=== PATIENT | male | born 1960 | race Caucasian/White ===

== ENCOUNTER 2016-12-20 00:15 | Observation (INO) | payer OTHER ==
[2016-12-20] MEDS ORDERED: cefTRIAXone 1 GM in Premix Bag 1 BAG IV ONE (00:21)
[2016-12-20] MEDS ORDERED: Diphtheria,Pertussis(Acell),Tetanus Vaccine 0.5 ML Syringe IM ONE (00:22)
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
[2016-12-20] MEDS: Sodium Chloride 0.9% 1,000 ML IV ONE ×2 (00:57→02:02)
[2016-12-20] MEDS ORDERED: Ketorolac 30 MG/ML SDV IVPUSH ONE (01:12)
[2016-12-20 01:34] LABS: CHLORIDE,CL 107 mmol/L (98-110); SODIUM,NA 139 mmol/L (136-146)
[2016-12-20] MEDS ORDERED: Bacitracin Oint 1 GM U/D Packet TOP ONE ×2 (01:55→03:57)
[2016-12-20] MEDS ORDERED: Bacitracin Oint 1 GM U/D Packet ONE (01:59)
[2016-12-20] MEDS ORDERED: Sodium Chloride 0.9% 1,000 ML IV SCH (02:00)
[2016-12-20] MEDS ORDERED: Iopamidol 755 MG/ML 500 ML Multipack Bottle IVPUSH STA (02:57)
[2016-12-20] MEDS ORDERED: diphenhydrAMINE 50 MG/ML SDV IVPUSH PRN (03:51)
[2016-12-20] MEDS ORDERED: Ondansetron 4 MG/2 ML SDV IVPUSH PRN (03:51)
[2016-12-20] MEDS ORDERED: HYDROmorphone 2 MG/ML Syringe IVPUSH PRN (03:51)
[2016-12-20] MEDS ORDERED: Albuterol/Ipratropium 3.0-0.5 MG/3 ML Neb Soln NEB PRN (03:58)
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
[2016-12-20] MEDS: Nicotine 14 MG/24 Hr Patch TRDERM SCH ×2 (05:01→08:45)
[2016-12-20] MEDS: Acetaminophen/HYDROcodone 325-5 MG Tab PO PRN ×3 (09:26→19:46)
[2016-12-20 09:29] LABS: CHLORIDE,CL 110 mmol/L (98-110); SODIUM,NA 140 mmol/L (136-146)
[2016-12-20] MEDS ORDERED: Gadobenate Dimeglumine 529 MG/ML 20 ML SDV IVPUSH STA (13:31)
[2016-12-20] MEDS ORDERED: Sodium Chloride 0.9% 500 ML IV SCH (13:45)
--- NOTE | 2016-12-20 13:47 | PCM.PN ---
- General Info Date of Service: 12/20/16 Admission Dx/Problem (Free Text): Cervical spine fracture at C2, C3 and C7. Right posterior 3rd rib fracture. Subjective Update: Patient with pain and bruising in left distal phalnx. Bruising and pain along ulnar side of dorsal and ventral aspect of right hand/wrist. Pain along right mid back with bruising. No new neurological deficits overnight. Denies headache , new chest pain, shortness of breath, abdominal pain. Pain along neck and upper back. - Review of Systems General: Reports: No Symptoms HEENT: Reports: no symptoms Pulmonary: Reports: no symptoms Cardiovascular: Reports: No Symptoms Gastrointestinal: Reports: No symptoms Genitourinary: Reports: no symptoms Musculoskeletal: Reports: hand pain, back pain, joint swelling Skin: Reports: other (abrasions to left forearm and mid back ) Neurological: Reports: No Symptoms Psychiatric: Reports: no symptoms - Patient Data Vitals - most recent: Last Vital Signs Temp 36.3 C 12/20/16 12:00 Pulse 66 12/20/16 12:00 Resp 20 12/20/16 12:00 BP 126/74 12/20/16 12:00 Pulse Ox 91 L 12/20/16 12:00 Weight - most recent: 67.404 kg I&O - last 24 hours: Intake & Output 12/19/16 12/20/16 12/20/16 22:59 06:59 14:59 Intake Total 100 Output Total 250 Balance -250 100 Lab Results last 24 hrs: Laboratory Results - last 24 hr 12/20/16 12/20/16 Range/Units 08:54 08:54 WBC 10.34 (4.0-11.0) K/uL RBC 4.39 L (4.50-5.90) M/uL Hgb 14.3 (13.0-17.0) g/dL Hct 41.1 (38.0-50.0) % MCV 93.6 (80.0-98.0) fL MCH 32.6 H (27.0-32.0) pg MCHC 34.8 (31.0-37.0) g/dL RDW Std Deviation 44.4 (28.0-62.0) fl RDW Coeff of Vidya 13 (11.0-15.0) % Plt Count 158 (150-400) K/uL MPV 10.30 (7.40-12.00) fL Nucleated RBC % 0.0 /100WBC Nucleated RBCs # 0 K/uL Sodium 140 (136-146) mmol/L Potassium 4.0 (3.5-5.1) mmol/L Chloride 110 (98-110) mmol/L Carbon Dioxide 24 (21-31) mmol/L BUN 11 (6.0-23.0) mg/dL Creatinine 0.8 (0.6-1.5) mg/dL Est Cr Clr Drug Dosing 95.96 mL/min Estimated GFR (MDRD) > 60.0 ml/min Glucose 99 (60-110) mg/dL Calcium 8.2 L (8.8-10.8) mg/dL Creatine Kinase 1319 H (9-236) IU/L Med Orders - Current: Current Medications Hydrocodone Bitart/Acetaminophen ([place] 325-5 Mg) 2 tab PO Q4H PRN PRN Reason: Pain (moderate 4-6) Last Admin: 12/20/16 09:26 Dose: 2 tab Albuterol/Ipratropium (Duoneb 3.0-0.5 Mg/3 Ml) 3 ml NEB Q8HRRT PRN PRN Reason: Respiratory Depression Diphenhydramine HCl (Benadryl) 25 mg IVPUSH Q4H PRN PRN Reason: Itching Hydromorphone HCl (Dilaudid) 0.5 mg IVPUSH Q1H PRN PRN Reason: Pain (severe 7-10) Last Admin: 12/20/16 04:59 Dose: 0.5 mg Sodium Chloride (Normal Saline) 1,000 mls @ 150 mls/hr IV STAT MIKE Last Admin: 12/20/16 02:15 Dose: 200 mls/hr Sodium Chloride (Normal Saline) 500 mls @ 500 mls/hr IV .BOLUS MIKE Nicotine (Habitrol) 14 mg TRDERM DAILY MIKE Last Admin: 12/20/16 08:45 Dose: 14 mg Ondansetron HCl (Zofran) 4 mg IVPUSH Q6H PRN PRN Reason: Nausea/Vomiting Discontinued Medications Bacitracin (Bacitracin Oint 1 Gm) 1 dose TOP ONETIME ONE Stop: 12/20/16 01:56 Last Admin: 12/20/16 02:01 Dose: 1 dose Bacitracin (Bacitracin Oint 1 Gm) Confirm Administered Dose 1 dose .ROUTE .STK- MED ONE Stop: 12/20/16 02:00 Last Admin: 12/20/16 02:29 Dose: Not Given Bacitracin (Bacitracin Oint 1 Gm) 1 dose TOP ONETIME ONE Stop: 12/20/16 03:58 Last Admin: 12/20/16 04:51 Dose: Not Given Diphtheria/Tetanus/Acell Pertussis (Adacel) 0.5 ml IM .ONCE ONE Stop: 12/20/16 00:23 Last Admin: 12/20/16 01:00 Dose: 0.5 ml Gadobenate Dimeglumine (Multihance) 20 ml IVPUSH ONETIME STA Stop: 12/20/16 13:32 Last Admin: 12/20/16 13:32 Dose: 13 ml Sodium Chloride (Normal Saline) 1,000 mls @ 999 mls/hr IV STAT ONE Stop: 12/20/16 01:21 Last Infusion: 12/20/16 01:58 Dose: Infused Ceftriaxone Sodium/Dextrose 1 (gm/ Premix) 50 mls @ 100 mls/hr IV ONETIME ONE Stop: 12/20/16 00:50 Last Admin: 12/20/16 00:57 Dose: 100 mls/hr Iopamidol (Isovue Multipack-370 (76%)) 100 ml IVPUSH ONETIME STA Stop: 12/20/16 02:58 Last Admin: 12/20/16 03:42 Dose: 100 ml Ketorolac Tromethamine (Toradol) 30 mg IVPUSH ONETIME ONE Stop: 12/20/16 01:13 Last Admin: 12/20/16 01:16 Dose: 30 mg - Exam General: alert, oriented, cooperative HEENT: Pupils equal, Pupils reactive, EOMI, Mucous membr. moist/pink, Other ( abrasions to the right side of the face over adventism and along anterior scalp. No lacterations) Neck: supple, trachea midline, other (C-collar in place) Lungs: Clear to auscultation, Normal respiratory effort Cardiovascular: Regular Rate, Regular Rhythm Abdomen: soft, no tenderness, no distension (Male) Exam: No Hernia, Normal Inspection Back Exam: Other (small abrasions and bruising along the right mid back just off midline. Mildly tender to palpation. ). No: CVA Tenderness (L), CVA Tenderness (R), Decreased Range of Motion, Muscle Spasm, Paraspinal Tenderness, Vertebral Tenderness Extremities: no edema, other (Ecchymosis and swelling along the ulnar aspect of the right hand. Bruising, swelling and pain at the left distal phalynx ) Peripheral Pulses: 2+: Radial (L), Radial (R) Skin: warm, dry, intact Neurological: no new focal deficit, normal gait, normal speech, normal tone, strength equal bilateral, reflexes equal bilateral, sensation intact Psy/Mental Status: alert, normal affect, normal mood - Problem List & Annotations (1) Cervical spine fracture SNOMED Code(s): 950068124 Code(s): S12.9XXA - FRACTURE OF NECK, UNSPECIFIED, INITIAL ENCOUNTER Status : Acute Current Visit: Yes Qualifiers: Encounter type: initial encounter Fracture alignment: nondisplaced (2) Rib fracture SNOMED Code(s): 37729007 Code(s): S22.39XA - FRACTURE OF ONE RIB, UNSP SIDE, INIT FOR CLOS FX Status : Acute Current Visit: Yes - Problem List Review Problem List Initiated/Reviewed/Updated: Yes - My Orders Last 24 Hours: My Active Orders 12/20/16 03:58 Albuterol/Ipratropium [DuoNeb 3.0-0.5 MG/3 ML] 3 ml NEB Q8HRRT PRN 12/20/16 03:59 RT Aerosol Therapy [RC] ASDIRECTED 12/20/16 10:40 Cervical Spine Comp w wo Cont [MR] Urgent 12/20/16 13:40 Hand 2V Lt [CR] Routine Hand 2V Rt [CR] Routine 12/20/16 13:41 Wrist 2V Rt [CR] Routine 12/20/16 13:45 Sodium Chloride 0.9% [Normal Saline] 500 ml IV .BOLUS 12/20/16 14:00 CREATINE KINASE,CK [CHEM] Routine - Plan Plan:: I discussed the patient with a neurosurgeon in [place]. Given all the variety of fractures and the mechanism he recommended an MRI of the c-spine while in- patient. MRI performed and waiting for read. Patient's CTA of the cervical spine showed no evidence of vertebral artery dissection. He is neurologically intact. If the MRI shows no evidence of ligamentous injury, he will remain in the c-collar and follow up this week in outpatient neurosurgery clinic. If there is ligamentous injury he will need to be transfered for neurosurgical management. His CK was slightly elevated this am. BUN/Cr are stable. UOP is adequate. Will give 500ml bolus after MRI done this afternoon with contrast. Will recheck CK at 2 pm. If this has plateaued or is decreasing no need to check any further. On secondary exam the patient c/o right hand pain along the ulnar side. There is bruising, swelling and tenderness along this area. Will obtain right wrist and right hand xrays. He also has pain at the distal phalanx of the 3rd finger on the left hand. This appears bruised, swollen, and slightly tender. Will obtain left hand x ray. If fractures are present will consult orthopedics/hand surgeon. He has no loss of motor function with theses injuries. He also had a slight abrasions and bruise along the right mid back. This appears superficial and no further work up is needed. Will follow up on xrays, MRI, and labs. If all are normal patient could potentially be discharged today. If CK is not lower may need to stay until it decreases.
[2016-12-20 16:02] VITALS: BP 139/83
[2016-12-20] MEDS ORDERED: Acetaminophen/oxyCODONE 325-5 MG Tab ONE (19:35)
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
== END 2016-12-20 19:59 | disposition home or self-care (01) ==
LOC: MW.ED 00:15 → MW.MS 03:57
PROVIDERS: ADMIT Surgery; ATTEND Surgery
DX: S12.200A Unspecified displaced fracture of third cervical vertebra, initial encounter for closed fracture (principal); M25.511 Pain in right shoulder; F17.210 Nicotine dependence, cigarettes, uncomplicated; V29.40XA Motorcycle driver injured in collision with unspecified motor vehicles in traffic accident, initial encounter; Y92.411 Interstate highway as the place of occurrence of the external cause; S22.39XA Fracture of one rib, unspecified side, initial encounter for closed fracture; S52.201A Unspecified fracture of shaft of right ulna, initial encounter for closed fracture; S12.100A Unspecified displaced fracture of second cervical vertebra, initial encounter for closed fracture; S12.600A Unspecified displaced fracture of seventh cervical vertebra, initial encounter for closed fracture
CPT/HCPCS: 70450; 70498; 71010; 72125; 72156; 72170; 73030; 73100; 73120; 80048; 80053; 80305; 81001; 82550; 82553; 84484; 85025; 85027; 90471; 90715; 96361; 96365; 96375; 99285; A9270; A9577; G0378; G0390; G0480; J0696; J1170; J1885; J7040; Q9967; 99283